=== PATIENT | male | born 1960 | race Caucasian/White ===

== ENCOUNTER 2021-03-27 17:53 | Emergency (ER) | payer OTHER ==
[~2021-03-27] VITALS: Ht 182.9 cm; Wt 77.1 kg
[2021-03-27] MEDS ORDERED: cloNIDine HCL 0.1 MG TAB PO ONE ×2 (18:15→21:15)
[2021-03-27 19:31] LABS: Basophils # (auto) 0 10 ^3/uL (0-0.2); Basophils % (auto) 0.3 % (0.0-2.0); Eosinophils # (auto) 0.1 10 ^3/uL (0-0.8); Eosinophils % (auto) 1.1 % (0.0-7.0); Hematocrit 45.6 % (41.0-53.0); Hemoglobin 14.9 g/dL (13.5-17.5); Lymphocytes # (auto) 0.8 10 ^3/uL (0.4-5.4); Lymphocytes % (auto) 7.9 % (10.0-50.0); Mean Corpuscular Hemoglobin 28.5 pg (28.0-32.0); Mean Corpuscular Hgb Conc. 32.7 g/dL (32.0-36.0); Mean Corpuscular Volume 87.3 fL (80.0-100.0); Monocytes # (auto) 0.6 10 ^3/uL (0-1.3); Monocytes % (auto) 6.1 % (0.0-12.0); Neutrophils # (auto) 8.7 10 ^3/uL (1.6-8.6); Neutrophils % (auto) 84.6 % (37.0-80.0); Nucleated Red Blood Cells % 0.1 %; Red Blood Cells 5.22 10^6/uL (4.5-5.90); Red Cell Distribution Width 14.9 % (11.8-14.3); White Blood Cell 10.3 10^3/uL (4.4-10.8)
[2021-03-27 19:49] LABS: Albumin 3.9 g/dL (3.4-5.0); Anion Gap 2 (5-15); Blood Urea Nitrogen 14 mg/dL (7-18); Calcium 9.1 mg/dL (8.5-10.1); Carbon Dioxide 28 mmol/L (21-32); Chloride 106 mmol/L (98-107); Glucose 103 mg/dL (74-106); Magnesium 2.3 mg/dL (1.6-2.6); Potassium 4.1 mmol/L (3.5-5.1); Sodium 136 mmol/L (136-145)
[2021-03-27 19:55] LABS: Alanine Aminotransferase 24 U/L (16-61); Alkaline Phosphatase 94 U/L (45-117); Aspartate Aminotransferase 19 U/L (15-37); BUN/Creatinine Ratio 12.4; Bilirubin, Total 0.8 mg/dL (0.2-1.0); GFR African American 85 mL/min; GFR Non-African American 70 mL/min; Total Protein 7.4 g/dL (6.4-8.2)
[2021-03-27 21:05] VITALS: BP 184/111
[2021-03-27] MEDS ORDERED: METOPROLOL TARTRATE 25 MG TAB PO ONE (21:45)
== END 2021-03-27 22:27 | disposition home or self-care (01) ==
LOC: ER 18:06 → EEVIPCON 18:06 → ER 22:27
DX: I10 Essential (primary) hypertension (principal); F12.10 Cannabis abuse, uncomplicated; F17.210 Nicotine dependence, cigarettes, uncomplicated; E78.5 Hyperlipidemia, unspecified
CPT/HCPCS: 36415; 71045; 80053; 83735; 84484; 85025; 93005